=== PATIENT | male | born 1995 | race Two or more races ===

== ENCOUNTER 2025-09-29 02:40 | Emergency (ER) | payer OTHER, SELFPAY | END 2025-09-29 03:24 | disposition home or self-care (01) | LOC: BURERS 02:40 | DX: A05.9 Bacterial foodborne intoxication, unspecified (principal); R11.2 Nausea with vomiting, unspecified; F17.210 Nicotine dependence, cigarettes, uncomplicated; Z71.6 Tobacco abuse counseling | CPT/HCPCS: 99283 ==